=== PATIENT | female | born 1940 | race Caucasian/White ===

== ENCOUNTER 2017-12-25 10:58 | Emergency (ER) | payer SELFPAY ==
[~2017-12-25] VITALS: Ht 177.8 cm; Wt 70.0 kg
[2017-12-25 11:11] VITALS: BP 178/80; PULSE 72; RESP 22; TEMP 98.6
--- NOTE | 2017-12-25 11:51 | PD ---
HPI Chief Complaint: Fall Time Seen by Provider: 11:23 Travel History International Travel<30 days: No Contact w/Intl Traveler<30days: No Traveled to known affect area: No History of Present Illness HPI 77 years old female complains of right hip pain. Patient states that she fell yesterday. Patient denies any head injury. Patient denies any headache. Patient denies any neck pain. Patient denies any chest pain or shortness of breath. Patient denies abdominal pain. Patient denies any focal weakness or numbness of extremity. Patient states that the right hip pain is sharp pain localized the right hip. Patient denies any pain radiation. Patient states that the pain is worse with movement of the right hip joint. Patient had no problems weightbearing this morning. On a scale of 1-10 the pain is a 7. PFSH Social History Tobacco Use: No Allergies-Medications (Allergen,Severity, Reaction): Coded Allergies: No Known Allergies (Unverified , 12/25/17) Review of Systems General / Constitutional: No: Fever Eyes: No: Visual changes HENT: No: Headaches Cardiovascular: No: Chest Pain or Discomfort Respiratory: No: Shortness of Breath Gastrointestinal: No: Abdominal Pain Genitourinary: No: Dysuria Musculoskeletal: Positive: Pain Skin: No Rash Neurologic: No: Weakness Psychiatric: No: Depression Endocrine: No: Polydipsia Hematologic/Lymphatic: No: Easy Bruising Physical Exam Narrative GENERAL: Well-nourished, well-developed patient. SKIN: Focused skin assessment warm/dry. HEAD: Normocephalic. EYES: No scleral icterus. No injection or drainage. NECK: Supple, trachea midline. No JVD or lymphadenopathy. CARDIOVASCULAR: Regular rate and rhythm without murmurs, gallops, or rubs. RESPIRATORY: Breath sounds equal bilaterally. No accessory muscle use. GASTROINTESTINAL: Abdomen soft, non-tender, nondistended. MUSCULOSKELETAL: No cyanosis, or edema. Patient has moderate tenderness in palpation lateral aspect of the right hip joint. Full range of motion of the right hip. Sensory motor function distally intact. BACK: Nontender without obvious deformity. No CVA tenderness. Neurologic exam normal. Data Data Last Documented VS Vital Signs Date Time Temp Pulse Resp B/P (MAP) Pulse Ox O2 Delivery O2 Flow Rate FiO2 12/25/17 11:11 98.6 72 22 178/80 (112) Orders Orders Hip, Uni(Ap&Lat) W Ap Pelvis (12/25/17 11:46) Ed Discharge Order (12/25/17 12:46) MDM Medical Decision Making Medical Screen Exam Complete: Yes Emergency Medical Condition: Yes Interpretation(s) Last Impressions Hip and Pelvis X-Ray 12/25/17 1146 Signed Impressions: CONCLUSION: No acute fracture or joint dislocation. Mild degenerative arthritis . Differential Diagnosis Differential diagnoses include contusion, fracture, dislocation. Narrative Course 77 years old female with right hip injury. Diagnosis Primary Impression: Contusion of right hip Qualified Codes: S70.01XA - Contusion of right hip, initial encounter Patient Instructions: General Instructions Additional Instructions: Ice pack as needed. Advil Tylenol for pain. Follow-up with orthopedist if persistent problem. Med/Other Pt SpecificInfo: No Change to Meds Disposition: 01 DISCHARGE HOME Condition: Stable Jimmie Reyna MD December 25, 2017 11:51
--- NOTE | 2017-12-25 12:26 | RADRPT ---
EXAM DATE: 12/25/2017 12:23 PM EDT AGE/SEX: 77 years / Female INDICATIONS: Fell today, pain right hip CLINICAL DATA: This is the patient's initial encounter. Patient reports that signs and symptoms have been present for 1 day and indicates a pain score of 5/10. MEDICAL/SURGICAL HISTORY: None. None. COMPARISON: No prior [facility] exams available for comparison. FINDINGS: Bony structures are intact and in normal alignment. Joints are intact without dislocation . Mild degenerative arthritis at the right hip and left hip joints. Osseous density is normal. Sof t tissues are unremarkable. No radiopaque foreign bodies seen. CONCLUSION: No acute fracture or joint dislocation. Mild degenerative arthritis. Electronically signed by: Hasmukh Mckeon MD 12/25/2017 12:24 PM EDT
== END 2017-12-25 13:06 | disposition home or self-care (01) ==
LOC: NEPD 10:58
DX: S70.01XA Contusion of right hip, initial encounter (principal); W19.XXXA Unspecified fall, initial encounter
CPT/HCPCS: 73502; 99283

== ENCOUNTER 2017-12-31 09:55 | Emergency (ER) | payer SELFPAY ==
[2017-12-31 10:02] VITALS: BP 208/90; PULSE 78; RESP 16; TEMP 97.9; O2SAT 98
[2017-12-31] MEDS ORDERED: ASPI-516 PO (10:26)
[2017-12-31] MEDS ORDERED: ENAL20TA PO (10:26)
[2017-12-31] MEDS ORDERED: VERA80TA PO (10:26)
[2017-12-31] MEDS ORDERED: MORPHINE SULFATE 4 MG/ML INJ IV PUSH ONE (10:30)
--- NOTE | 2017-12-31 10:30 | PD ---
HPI Chief Complaint: Musculoskeletal Complaint Time Seen by Provider: 10:21 Travel History International Travel<30 days: No Contact w/Intl Traveler<30days: No Traveled to known affect area: No History of Present Illness HPI Patient 77-year-old female history somewhat limited by language barrier presents emergency department for evaluation of right shoulder pain and probable dislocation after a fall. Patient states she has had frequent falls secondary to dizziness, denies any loss conscious head injury neck injury back injury chest injury pelvis injury. She states she fell sideways landing directly on her right shoulder. Symptoms started just prior to arrival, no radiation, context and associated signs symptoms as above. 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 PFSH Past Medical History Cardiovascular Problems: Yes Diminished Hearing: No Hypertension: Yes Tetanus Vaccination: < 5 Years Influenza Vaccination: Yes : 3 Para: 3 Past Surgical History Gynecologic Surgery: Yes (BLADDER SX ) Social History Alcohol Use: No Tobacco Use: No Substance Use: No Allergies-Medications (Allergen,Severity, Reaction): Coded Allergies: No Known Allergies (Unverified , 12/31/17) Reported Meds & Prescriptions Reported Meds & Active Scripts Active Reported Verapamil (Verapamil HCl) 80 Mg Tab 80 Mg PO Q8H Enalapril (Enalapril Maleate) 20 Mg Tab 20 Mg PO DAILY Aspirin 81 Mg Chew 81 Mg PO DAILY Review of Systems Except as stated in HPI: all other systems reviewed are Neg Physical Exam Narrative GENERAL: Well-nourished, well-developed patient. SKIN: Focused skin assessment warm/dry. HEAD: Normocephalic. EYES: No scleral icterus. No injection or drainage. NECK: Supple, trachea midline. No JVD or lymphadenopathy. CARDIOVASCULAR: Regular rate and rhythm without murmurs, gallops, or rubs. RESPIRATORY: Breath sounds equal bilaterally. No accessory muscle use. GASTROINTESTINAL: Abdomen soft, non-tender, nondistended. MUSCULOSKELETAL: No cyanosis, or edema. There is an obvious dislocation of the right glenohumeral joint, pulse motor and sensory intact distally in all 4 extremity's, compartments are soft, full nontender range of motion of the elbow wrist and hand of the right upper extremity. No midline CT or L-spine tenderness, pelvis stable BACK: Nontender without obvious deformity. No CVA tenderness. Data Data Last Documented VS Vital Signs Date Time Temp Pulse Resp B/P (MAP) Pulse Ox O2 Delivery O2 Flow Rate FiO2 12/31/17 12:20 97.8 76 16 150/81 (104) 99 Orders Orders Shoulder, Limited(2vws) (12/31/17 ) Chest, Single Ap (12/31/17 ) Morphine Inj (Morphine Inj) (12/31/17 10:30) Etomidate Inj (Amidate Inj) (12/31/17 11:30) Sling And Swathe (12/31/17 ) Shoulder, Limited(2vws) (12/31/17 ) Ed Discharge Order (12/31/17 11:56) Sling And Swathe (12/31/17 ) [facility] Medical Decision Making Medical Screen Exam Complete: Yes Emergency Medical Condition: Yes Differential Diagnosis Shoulder dislocation, shoulder fracture, humerus fracture, Narrative Course Patient room to the emergency department, she underwent conscious sedation by Dr. Coreas and reduction by myself and medical student Tomas. She had adequate reduction, possible small hairline fracture of the humeral head, nondisplaced. She was recommended to follow-up with orthopedics, she is stable for discharge. Procedures Procedure Narrative ORTHOPEDIC REDUCTION: Patient underwent informed consent for both and Dr. Coreas all risk benefits competitions alternatives were discussed of both the conscious sedation and the reduction. Using standard traction countertraction method with a little bit of external rotation the patient was reduced quite easily, pulse motor and sensory were confirmed after the reduction. Patient had return to normal mental status. She was placed in sling and swath. Diagnosis Primary Impression: Shoulder dislocation Additional Impression: Humerus fracture Referrals: Natalia Blanca MD Disposition: 01 DISCHARGE HOME Condition: Stable Rajeev Calderon MD December 31, 2017 10:30
[2017-12-31 10:40] VITALS: RESP 16
--- NOTE | 2017-12-31 11:01 | RADRPT ---
EXAM DATE: 12/31/2017 10:56 AM EDT AGE/SEX: 77 years / Female INDICATIONS: Shortness of breath after fall today. CLINICAL DATA: This is the patient's initial encounter. Patient reports that signs and symptoms have been present for 1 day and indicates a pain score of 0/10. MEDICAL/SURGICAL HISTORY: Diabetes mellitus type II. None. COMPARISON: No prior [facility] exams available for comparison. FINDINGS: A single AP view of the chest demonstrates the clear lungs. Elevation right hemidiaphragm. Heart is e nlarged The cardiomediastinal contours are unremarkable. Osseous structures are intact. Possible sub luxation right shoulder. CONCLUSION: 1. Slight elevation right hemidiaphragm with clear lungs. 2. Possible subluxation right shoulder. Electronically signed by: John Akers MD 12/31/2017 11:00 AM EDT
--- NOTE | 2017-12-31 11:02 | RADRPT ---
EXAM DATE: 12/31/2017 10:55 AM EDT AGE/SEX: 77 years / Female INDICATIONS: Right shoulder pain after fall today. CLINICAL DATA: This is the patient's initial encounter. Patient reports that signs and symptoms have been present for 1 day and indicates a pain score of 10/10. MEDICAL/SURGICAL HISTORY: None. None. COMPARISON: No prior [facility] exams available for comparison. FINDINGS: Views of the right shoulder obtained. There is anterior/inferior subluxation of the humeral head. Min imal irregularity humeral head could be minimal fracture.. No radiopaque foreign bodies seen. CONCLUSION: 1. Anterior/inferior subluxation. 2. Possible minimal fracture humeral head Electronically signed by: John Akers MD 12/31/2017 11:01 AM EDT
[2017-12-31] MEDS ORDERED: ETOMIDATE 20 MG/10 ML VIAL IV PUSH ONE (11:30)
[2017-12-31 11:50] VITALS: O2SAT 97
--- NOTE | 2017-12-31 12:05 | RADRPT ---
EXAM DATE: 12/31/2017 11:58 AM EDT AGE/SEX: 77 years / Female INDICATIONS: Post reduction right shoulder. CLINICAL DATA: This is the patient's subsequent encounter. Patient reports that signs and symptoms h ave been present for 1 day and indicates a pain score of 0/10. MEDICAL/SURGICAL HISTORY: Diabetes mellitus type II. None. COMPARISON: [facility] [place], [facility] ([facility] 12/31/2017. . FINDINGS: Views of the right shoulder obtained. Humeral head has been relocated to its anatomic position. Fract ure not seen. Soft tissues are unremarkable. No radiopaque foreign bodies seen. CONCLUSION: Anatomic position of right shoulder. Fracture not definitely seen on current study. Electronically signed by: John Akers MD 12/31/2017 12:03 PM EDT
[2017-12-31 12:20] VITALS: BP 150/81; TEMP 97.8
--- NOTE | 2017-12-31 12:35 | PD ---
Data Data Last Documented VS Vital Signs Date Time Temp Pulse Resp B/P (MAP) Pulse Ox O2 Delivery O2 Flow Rate FiO2 12/31/17 12:20 97.8 76 16 150/81 (104) 99 Orders Orders Shoulder, Limited(2vws) (12/31/17 ) Chest, Single Ap (12/31/17 ) Morphine Inj (Morphine Inj) (12/31/17 10:30) Etomidate Inj (Amidate Inj) (12/31/17 11:30) Sling And Swathe (12/31/17 ) Shoulder, Limited(2vws) (12/31/17 ) Ed Discharge Order (12/31/17 11:56) Sling And Swathe (12/31/17 ) MDM Supervised Visit with MARICRUZ: No Narrative Course I was asked by Dr. Calderon to perform conscious sedation for reduction of the right shoulder dislocation. Patient has history of hypertension, otherwise is healthy. She is able to fully extend her neck and open her mouth. Procedures Procedure Narrative After the risks and benefits were discussed the following procedure was performed: MODERATE SEDATION: The patient was placed on a personnel monitor and pulse oximetry. An ambu bag and suction was immediately available at bedside. The patient was monitored by the nurse. Oxygen saturation , heart rate and blood pressure were monitored. Procedural sedation was acheived using etomidate. The patient was observed until awake and alert. Procedural Sedation time in attendance was 15 minutes. Diagnosis Primary Impression: Shoulder dislocation Additional Impression: Humerus fracture Referrals: Natalia Blanca MD Patient Instructions: General Instructions, Shoulder Dislocation (ED), Fall Prevention for Older Adults (ED), Moderate Sedation (ED), Proximal Humerus Fracture (ED) Departure Forms: Tests/Procedures Disposition: 01 DISCHARGE HOME Condition: Stable Bailey Domínguez MD December 31, 2017 12:35
== END 2017-12-31 12:20 | disposition home or self-care (01) ==
LOC: NEPE 09:55
DX: S43.004A Unspecified dislocation of right shoulder joint, initial encounter (principal); S42.301A Unspecified fracture of shaft of humerus, right arm, initial encounter for closed fracture; W19.XXXA Unspecified fall, initial encounter; I10 Essential (primary) hypertension
CPT/HCPCS: 23665; 71045; 73030; 96374; 99152; 99283; J2270